=== PATIENT | male | born 1980 | race African-American/Black ===

== ENCOUNTER 2018-09-24 08:00 | Emergency (ER) | payer BC ==
[~2018-09-24] VITALS: Ht 177.8 cm; Wt 85.7 kg
[2018-09-24 08:07] VITALS: Ht 177.8 cm; Wt 85.7 kg
[2018-09-24 09:15] LABS: BASOPHIL % 1.3 % (0-2); PLATELET COUNT 252 x10^3mcL (130-400); RED CELL DISTRIBUTION WIDTH 13.4 % (11.5-14.5)
[2018-09-24 09:32] LABS: CALCIUM 9.2 mg/dL (8.5-10.1); CHLORIDE SERUM 102 mmol/L (98-107); GFR1 > 60 mL/min; GLUCOSE SERUM 102 mg/dL (74-106); POTASSIUM SERUM 4.3 mmol/L (3.5-5.1); SODIUM SERUM 141 mmol/L (136-145)
[2018-09-24 09:37] LABS: ALBUMIN 3.9 g/dL (3.4-5.0); ALKALINE PHOSPHATASE 53 U/L (46-116); ALT/SGPT 48 U/L (16-63); AST/SGOT 26 U/L (15-37); BILIRUBIN TOTAL 0.4 mg/dL (0.20-1.00); LIPASE 62 IU/L (73-393); TOTAL PROTEIN, SERUM 8.2 g/dL (6.4-8.2)
[2018-09-24 11:31] VITALS: BP 128/90
== END 2018-09-24 11:34 | disposition home or self-care (01) ==
LOC: ED 08:00
PROVIDERS: Emergency Medicine
DX: K57.32 Diverticulitis of large intestine without perforation or abscess without bleeding (principal)
CPT/HCPCS: J1885; J2405; J7030